=== PATIENT | female | born 1995 | race Caucasian/White ===

== ENCOUNTER 2019-11-12 03:04 | Emergency (ER) | payer OTHER ==
[~2019-11-12] VITALS: Ht 170.2 cm; Wt 68.2 kg
[2019-11-12] MEDS ORDERED: LOW-OGESTREL 281 TAB PO (03:14)
[2019-11-12 03:41] LABS: BASO % 0.2 % (0.0-2.0); EOS # 0.2 (0.0-0.7); EOS % 1.5 % (0-4.0); GRAN # 8.2 (1.4-6.5); GRAN % 84.6 % (42.2-75.2); HEMATOCRIT 43.5 % (37.0-47.0); HEMOGLOBIN 14.9 g/dl (12.5-16.0); LYMPH # 0.7 (1.2-3.4); LYMPH % 6.7 % (20.0-51.0); MEAN CELL VOLUME 89 fl (80.0-100.0); MEAN CORPUSCULAR HEMOGLOBIN 31 pg (27.0-31.0); MEAN CORPUSCULAR HGB CONC 34 g/dl (33.0-37.0); MEAN PLATELET VOLUME 10.2 fl (7.4-10.4); MONO # 0.6 (0.1-0.6); MONO % 6.6 % (1.7-9.3); PLATELET COUNT 354 K/mm3 (130-400); RED BLOOD COUNT 4.88 M/mm3 (4.10-5.30); REDCELL DISTRIBUTION WIDTH-CV 12.2 % (11.5-14.5)
[2019-11-12 03:56] LABS: ALBUMIN 4.9 gm/dL (3.5-5.0); BILIRUBIN,TOTAL 2.2 mg/dL (0.0-1.0); C-REACTIVE PROTEIN 2.6 mg/dL (0.0-0.9); CALCIUM 9.6 mg/dL (8.4-10.2); CREATININE, serum 1.03 (0.52-1.25); MAGNESIUM 1.6 mg/dL (1.6-2.3); POTASSIUM 3.8 mmol/L (3.4-5.0); TOTAL PROTEIN 8.7 gm/dL (6.4-8.2)
[2019-11-12 04:06] VITALS: BP 118/64; TEMP 99.4
[2019-11-12] MEDS ORDERED: PROTONIX 40MG T40 MG PO (06:10)
[2019-11-12] MEDS ORDERED: ZOFRAN ODT4 MG PO (06:10)
[2019-11-12 06:35] VITALS: PULSE 79
== END 2019-11-12 06:35 | disposition home or self-care (01) ==
LOC: COL.ER 03:04
PROVIDERS: Emergency Medicine
DX: R10.13 Epigastric pain (principal); R11.10 Vomiting, unspecified; R19.7 Diarrhea, unspecified
CPT/HCPCS: J2550; J7030

== ENCOUNTER → 2020-05-21 | Outpatient (CLI) | payer OTHER ==
[~2020-05-21] MED LIST: LOW-OGESTREL 281 TAB PO; PROTONIX 40MG T40 MG PO; ZOFRAN ODT4 MG PO
== END ==
LOC: COL.RAD
DX: E04.1 Nontoxic single thyroid nodule (principal)

== ENCOUNTER → 2021-01-13 | Outpatient (CLI) | payer OTHER | LOC: COL.RAD 12-30 07:30 | DX: M25.571 Pain in right ankle and joints of right foot (principal) ==